=== PATIENT | female | born 1995 | race Caucasian/White ===

== ENCOUNTER → 2017-03-08 | Outpatient (REF) | payer OTHER | LOC: M SFHCWAGY 11:20 | PROVIDERS: ATTEND Nurse Practitioner Family | DX: Z11.3 Encounter for screening for infections with a predominantly sexual mode of transmission (principal) ==

== ENCOUNTER → 2017-05-27 | Outpatient (REF) | payer OTHER | LOC: M LAB REF 09:15 | PROVIDERS: ATTEND Physician Assistant | DX: Z11.3 Encounter for screening for infections with a predominantly sexual mode of transmission (principal) ==

== ENCOUNTER → 2017-11-05 | Outpatient (CLI) | payer OTHER | LOC: M WUC 14:57 | PROVIDERS: ATTEND Physician Assistant | DX: Z11.3 Encounter for screening for infections with a predominantly sexual mode of transmission (principal) ==

== ENCOUNTER → 2018-03-24 | Outpatient (REF) | payer OTHER ==
[2018-03-24 19:29] LABS: CHLAMYDIA DNA AMPLIFICATION NEGATIVE (NEGATIVE); GC DNA AMPLIFICATION NEGATIVE (NEGATIVE)
== END ==
LOC: M SFHCWAGY 15:03
DX: Z01.419 Encounter for gynecological examination (general) (routine) without abnormal findings (principal); Z11.51 Encounter for screening for human papillomavirus (HPV); R87.620 Atypical squamous cells of undetermined significance on cytologic smear of vagina (ASC-US)

== ENCOUNTER → 2018-05-28 | Outpatient (CLI) | payer OTHER ==
[2018-05-28 16:39] LABS: BASO % 0.5 % (0.0-1.0); EOS # 0.3 10^3/uL (0.0-0.50); EOS % 3.2 % (0.0-3.0); HEMATOCRIT 40.5 % (36.0-47.0); HEMOGLOBIN 13.7 g/dl (12.0-15.5); IMMATURE GRANULOCYTE % 0.3 % (0-3.0); LYMPH # 2.9 10^3/uL (1.5-6.5); LYMPH % 36.4 % (24.0-44.0); MEAN CORPUSCULAR HEMOGLOBIN 29.7 pg (27.0-33.0); MEAN CORPUSCULAR HGB CONC 33.8 g/dl (32.0-36.5); MEAN CORPUSCULAR VOLUME 87.9 fl (80.0-96.0); MONO # 0.7 10^3/uL (0.0-0.8); MONO % 9.2 % (0.0-5.0); NEUTROPHILS # 3.9 10^3/uL (1.8-7.7); NEUTROPHILS % 50.4 % (36.0-66.0); PLATELET COUNT, AUTOMATED 318 10^3/uL (150-450); RED BLOOD COUNT 4.61 10^6/uL (4.00-5.40); RED CELL DISTRIBUTION WIDTH 12.4 % (11.5-14.5); WHITE BLOOD COUNT 7.8 10^3/uL (4.0-10.0)
[2018-05-28 17:12] LABS: ALBUMIN 3.7 GM/DL (3.2-5.2); ALBUMIN/GLOBULIN RATIO 0.88 (1.00-1.93); ALKALINE PHOSPHATASE 67 U/L (45-117); ALT/SGPT 20 U/L (12-78); ANION GAP 7 MEQ/L (8-16); AST/SGOT 13 U/L (7-37); BILIRUBIN,TOTAL 0.5 MG/DL (0.2-1.0); BLOOD UREA NITROGEN 12 MG/DL (7-18); CALCIUM LEVEL 8.6 MG/DL (8.5-10.1); CARBON DIOXIDE LEVEL 29 MEQ/L (21-32); CHLORIDE LEVEL 104 MEQ/L (98-107); CREATININE FOR GFR 0.87 MG/DL (0.55-1.30); FREE T4 1.06 NG/DL (0.76-1.46); GLOMERULAR FILTRATION RATE > 60.0 (>60); GLUCOSE, FASTING 83 MG/DL (70-100); POTASSIUM SERUM 4.2 MEQ/L (3.5-5.1); SODIUM LEVEL 140 MEQ/L (136-145); TOTAL PROTEIN 7.9 GM/DL (6.4-8.2)
[2018-05-28 17:19] LABS: ESTIMATED AVERAGE GLUCOSE 97 MG/DL (60-110)
== END ==
LOC: M WUC 13:38
DX: R35.8 Other polyuria (principal)
CPT/HCPCS: 84443

== ENCOUNTER → 2018-09-23 | Outpatient (CLI) | payer OTHER ==
[2018-09-23 16:59] LABS: BASO % 0.2 % (0.0-1.0); EOS # 0.1 10^3/uL (0.0-0.50); EOS % 1.2 % (0.0-3.0); HEMATOCRIT 37.5 % (36.0-47.0); HEMOGLOBIN 12.5 g/dl (12.0-15.5); IMMATURE GRANULOCYTE % 0.3 % (0-3.0); LYMPH # 3.5 10^3/uL (1.5-6.5); LYMPH % 35.1 % (24.0-44.0); MEAN CORPUSCULAR HEMOGLOBIN 29.3 pg (27.0-33.0); MEAN CORPUSCULAR HGB CONC 33.3 g/dl (32.0-36.5); MONO # 0.7 10^3/uL (0.0-0.8); MONO % 7.2 % (0.0-5.0); NEUTROPHILS # 5.6 10^3/uL (1.8-7.7); PLATELET COUNT, AUTOMATED 328 10^3/uL (150-450); RED BLOOD COUNT 4.26 10^6/uL (4.00-5.40); RED CELL DISTRIBUTION WIDTH 12.4 % (11.5-14.5)
[2018-09-23 17:20] LABS: FERRITIN 37 NG/ML (8-252)
[2018-09-23 17:20] LABS: IRON (FE) 97 UG/DL (50-170)
[2018-09-23 17:21] LABS: TOTAL 25(OH) VITAMIN D 17.8 NG/ML (30.0-100.0)
[2018-09-23 17:22] LABS: CONTROL LINE MONO INT CTR LINE PRESENT; FOLATE > 24.0 NG/ML (>5.4); MONO SCRN NEGATIVE (NEGATIVE)
== END ==
LOC: M LAB 15:46
DX: R53.83 Other fatigue (principal)
CPT/HCPCS: 82746

== ENCOUNTER → 2019-03-25 | Outpatient (REF) | payer OTHER ==
[2019-03-25 21:02] LABS: CHLAMYDIA DNA AMPLIFICATION NEGATIVE (NEGATIVE); GC DNA AMPLIFICATION NEGATIVE (NEGATIVE)
[2019-03-28 14:15] LABS: HPV HYBRID CAPTURE II Positive (Negative)
== END ==
LOC: M SFHCWAGY 15:38
PROVIDERS: ATTEND Nurse Practitioner Family
DX: Z12.4 Encounter for screening for malignant neoplasm of cervix (principal)

== ENCOUNTER → 2019-04-23 | Outpatient (REF) | payer OTHER ==
[2019-04-23 15:37] LABS: CHLAMYDIA DNA AMPLIFICATION NEGATIVE (NEGATIVE); GC DNA AMPLIFICATION NEGATIVE (NEGATIVE)
== END ==
LOC: M SFHCWAGY 13:21
PROVIDERS: ATTEND Nurse Practitioner Family
DX: Z11.3 Encounter for screening for infections with a predominantly sexual mode of transmission (principal)

== ENCOUNTER 2019-06-22 15:33 | Emergency (ER) | payer OTHER ==
[~2019-06-22] VITALS: Ht 177.8 cm; Wt 69.5 kg
[2019-06-22] MEDS ORDERED: FLUO20CA19 PO (15:42)
[2019-06-22] MEDS ORDERED: NORT1TAB3 PO (15:42)
[2019-06-22 16:02] LABS: BASO % 0.3 % (0.0-1.0); EOS # 0.1 10^3/uL (0.0-0.50); EOS % 1.5 % (0.0-3.0); HEMATOCRIT 39.6 % (36.0-47.0); HEMOGLOBIN 13.6 g/dl (12.0-15.5); LYMPH # 2.3 10^3/uL (1.5-6.5); LYMPH % 33.9 % (24.0-44.0); MEAN CORPUSCULAR HEMOGLOBIN 30.5 pg (27.0-33.0); MEAN CORPUSCULAR HGB CONC 34.3 g/dl (32.0-36.5); MEAN CORPUSCULAR VOLUME 88.8 fl (80.0-96.0); MONO # 0.7 10^3/uL (0.0-0.8); MONO % 10.9 % (0.0-5.0); NEUTROPHILS # 3.6 10^3/uL (1.8-7.7); NEUTROPHILS % 53.3 % (36.0-66.0); PLATELET COUNT, AUTOMATED 331 10^3/uL (150-450); RED BLOOD COUNT 4.46 10^6/uL (4.00-5.40); WHITE BLOOD COUNT 6.7 10^3/uL (4.0-10.0)
[2019-06-22 16:22] LABS: ALBUMIN 3.8 GM/DL (3.2-5.2); ALT/SGPT 21 U/L (12-78); BILIRUBIN,TOTAL 0.1 MG/DL (0.2-1.0); BLOOD UREA NITROGEN 12 MG/DL (7-18); CALCIUM LEVEL 9.3 MG/DL (8.5-10.1); CARBON DIOXIDE LEVEL 27 MEQ/L (21-32); CHLORIDE LEVEL 107 MEQ/L (98-107); CREATININE FOR GFR 0.97 MG/DL (0.55-1.30); GLOMERULAR FILTRATION RATE > 60.0 (>60); GLUCOSE, FASTING 107 MG/DL (70-100); POTASSIUM SERUM 3.8 MEQ/L (3.5-5.1); SODIUM LEVEL 140 MEQ/L (136-145); TOTAL PROTEIN 7.8 GM/DL (6.4-8.2)
[2019-06-22 16:31] LABS: HEPATITIS B SURFACE ANTIBODY NEGATIVE (POSITIVE)
[2019-06-22 16:42] LABS: HEPATITIS B SURFACE ANTIGEN NEGATIVE (NEGATIVE)
[2019-06-22 17:11] LABS: HEPATITIS C VIRUS ABY INDEX 0.1 INDEX (<0.8)
[2019-06-22 17:44] VITALS: BP 113/73
== END 2019-06-22 17:46 | disposition home or self-care (01) ==
LOC: M ED 15:33
DX: S61.431A Puncture wound without foreign body of right hand, initial encounter (principal); Z77.21 Contact with and (suspected) exposure to potentially hazardous body fluids; W26.8XXA Contact with other sharp object(s), not elsewhere classified, initial encounter; Y92.89 Other specified places as the place of occurrence of the external cause; Y93.9 Activity, unspecified; Y99.0 Civilian activity done for income or pay; F32.9 Major depressive disorder, single episode, unspecified; Z79.899 Other long term (current) drug therapy

== ENCOUNTER 2019-07-17 22:23 | Inpatient (IN) | payer MEDICAID, OTHER ==
[~2019-07-17] VITALS: Ht 177.8 cm; Wt 69.6 kg
[~2019-07-17 22:23] MED LIST: FLUO20CA19 PO; NORT1TAB3 PO
[2019-07-17 22:57] LABS: MEAN CORPUSCULAR HEMOGLOBIN 29.5 pg (27.0-33.0); MEAN CORPUSCULAR HGB CONC 34.2 g/dl (32.0-36.5); MEAN CORPUSCULAR VOLUME 86.4 fl (80.0-96.0); PLATELET COUNT, AUTOMATED 323 10^3/uL (150-450); WHITE BLOOD COUNT 8.5 10^3/uL (4.0-10.0)
[2019-07-17 23:38] LABS: ACETAMINOPHEN LEVEL < 2.0 UG/ML (10.0-30.0); ALBUMIN 3.6 GM/DL (3.2-5.2); ALT/SGPT 18 U/L (12-78); BILIRUBIN,DIRECT 0.1 MG/DL (0.0-0.2); BILIRUBIN,TOTAL 0.3 MG/DL (0.2-1.0); BLOOD UREA NITROGEN 12 MG/DL (7-18); CALCIUM LEVEL 8.5 MG/DL (8.5-10.1); CARBON DIOXIDE LEVEL 24 MEQ/L (21-32); CHLORIDE LEVEL 106 MEQ/L (98-107); CREATININE FOR GFR 0.92 MG/DL (0.55-1.30); ETHYL ALCOHOL (ETHANOL) < 0.003 % (0.000-0.010); GLOMERULAR FILTRATION RATE > 60.0 (>60); GLUCOSE, FASTING 97 MG/DL (70-100); POTASSIUM SERUM 3.8 MEQ/L (3.5-5.1); SALICYLATE LEVEL < 1.7 MG/DL (5.0-30.0); SODIUM LEVEL 138 MEQ/L (136-145); TOTAL PROTEIN 7.5 GM/DL (6.4-8.2)
[2019-07-18 00:20] LABS: AMPHETAMINES LEVEL URINE NEGATIVE (NEGATIVE); BARBITURATES URINE NEGATIVE (NEGATIVE); BENZODIAZEPINES URINE POSITIVE (NEGATIVE); CANNABINOIDS URINE POSITIVE (NEGATIVE); COCAINE METABOLITE URINE NEGATIVE (NEGATIVE); METHADONE URINE NEGATIVE (NEGATIVE); OPIATES URINE NEGATIVE (NEGATIVE); PHENCYCLIDINE URINE NEGATIVE (NEGATIVE)
[2019-07-18] MEDS ORDERED: traZODone 50 MG TAB PO PRN (01:45)
[2019-07-18] MEDS ORDERED: MAALOX 30 ML SUSP *UDC PO PRN (01:45)
[2019-07-18] MEDS ORDERED: MOM 30ML SUSPENSION UDC PO PRN (01:45)
[2019-07-18] MEDS ORDERED: ACETAMINOPHEN TAB 650MG DOSE (2X325MG) PO PRN (01:45)
[2019-07-18 02:33] VITALS: BP 114/71
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
[2019-07-18] MEDS ORDERED: hydrOXYzine 50 MG TAB PO PRN (11:15)
--- NOTE | 2019-07-18 12:55 | CR.PDOC ---
General Date of Consultation: Jul 18, 2019 Attending Physician: AARTI CURIEL DO Consultation REASON FOR CONSULTATION/CHIEF COMPLAINT: Medical clearance HISTORY OF PRESENT ILLNESS: Patient is 23 years old female with past medical history of depression, anxiety, IBS presented hospital with acute episode of depression and suicidal ideation. Psych team asked medical service to evaluate patient. Patient states that she doesn't have any major health problem. She's been diagnosed with IBS, mixed, currently not on any medication. Patient stated that since morning she has been having diplopia specifically when she see distant objects. Patient denied fever, chills, nausea, vomiting, shortness of breath, chest pain, diarrhea or dysuria ALLERGIES: Please see below. HOME MEDICATIONS: Please see below. PAST MEDICAL HISTORY: Major depressive disorder Anxiety IBS PAST SURGICAL HISTORY: None FAMILY HISTORY: Patient was adopted, she doesn't know about the health of her biological parents SOCIAL HISTORY: Patient smokes marijuana twice weekly Alcohol occasionally Never smoked tobacco cigarettes REVIEW OF SYSTEMS: 10 point review of system negative except what is listed in HPI PHYSICAL EXAMINATION: VITAL SIGNS: Please see below. GENERAL APPEARANCE: mild distress HEENT: PERRLA, EOMI, no JVD RESPIRATORY: CTA CARDIOVASCULAR: S1-S2 ABDOMEN: Nontender, nondistended EXTREMITIES: No swelling, no cyanosis NEUROLOGICAL: Nonfocal, cranial nerves from 2-12 intact, muscle strength of 4 limbs 5 out of 5 LABORATORY DATA: Please see below. ASSESSMENT/PLAN: Patient is 23 years old female with past medical history of depression, anxiety, IBS presented hospital with acute episode of depression and suicidal ideation. Psych team asked medical service to evaluate patient. Diplopia On my neurological exam cranial nerves from 2-12 intact, no any focal deficiency, patient alert, oriented, awake. Patient does not have any dizziness, vertigo, lightheadedness, no nausea, no vomiting. The diplopia could be secondary to cannabinoid which was detected in her urine. We'll follow clinically. Please reconsult if patient continues to have diplopia or developed any new neurological symptoms. Vital Signs/I&O Vital Signs Date Time Temp Pulse Resp B/P (MAP) Pulse Ox O2 Delivery O2 Flow Rate FiO2 07/18/19 02:33 98.2 80 16 114/71 (85) 99 07/17/19 22:45 Room Air Laboratory Data Labs 24H Laboratory Tests 2 07/17/19 22:41: Nucleated Red Blood Cells % (auto) 0.0, Anion Gap 8, Glomerular Filtration Rate > 60.0, Calcium Level 8.5, Aspartate Amino Transf (AST/SGOT) 12, Alanine Aminotransferase (ALT/SGPT) 18, Alkaline Phosphatase 57, Total Bilirubin 0.3, Direct Bilirubin 0.1, Total Protein 7.5, Albumin 3.6, Albumin/Globulin Ratio 0.92L, Thyroid Stimulating Hormone (TSH) 1.760, Salicylates Level < 1.7L, Acetaminophen Level < 2.0L, Ethyl Alcohol Level < 0.003 07/17/19 23:49: Urine Amphetamines Screen NEGATIVE, Urine Benzodiazepines Screen POSITIVEH, Urine Opiates Screen NEGATIVE, Urine Methadone Screen NEGATIVE, Urine Barbiturates Screen NEGATIVE, Urine Phencyclidine Screen NEGATIVE, Urine Cocaine Metabolite Screen NEGATIVE, Urine Cannabinoids Screen POSITIVEH CBC/BMP Laboratory Tests 07/17/19 22:41 Red Blood Count 4.40, Mean Corpuscular Volume 86.4, Mean Corpuscular Hemoglobin 29.5, Mean Corpuscular Hemoglobin Concent 34.2, Red Cell Distribution Width 13.0 Allergies Coded Allergies: No Known Allergies (Unverified , 06/22/19) Home Medications Scheduled Fluoxetine Hcl (Fluoxetine HCl) 20 Mg Capsule, 60 MG PO QHS, (Reported) Norethindrone-Ethinyl Estrad (Nortrel 1-35 28 Tablet) 1 Each Tablet, 1 TAB PO QHS, (Reported) AARTI CURIEL DO Jul 18, 2019 12:55
[2019-07-18 17:49] VITALS: BP 109/61
[2019-07-18] MEDS: FLUoxetine 20 MG CAP PO SCH (20:09)
[2019-07-19 06:26] VITALS: BP 108/60
--- NOTE | 2019-07-19 09:16 | MHIPNPDOC ---
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 Pt in ED endorsed fleeting thoughts of jumping off a building that started last week that she stated was triggered by two male friends of hers but would not elaborate further. She endorsed in the ED depression, anxiety, insomnia, hopelessness/helplessness, poor concentration/energy/appetite. She has never been admitted to inpatient psych in the past, has no current outpatient provider, and currently takes prozac 60mg qhs prescribed by her PCP. Her utox in the ED was positive for cannabis and benzodiazepines. Pt seen and states she's had depression for quite a while and "people have been leaving me... 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 Endorses crying during some episodes with anxiety and depression symptoms. States breakdowns are frequently related to "toxic people in my life" and attempts she has a few toxic people in her life now (friend with benefits alex that is cold and distant and "makes me feel like annoying and a burden" who is also moving away soon. Admits she easily gets attached to others. Appears to have some borderline personality characteristics . States her outpatient prescribes her prozac to her which helps a bit but "isn't enough." States her utox is positive for benzo b/c she took a klonopin that she got from a friend. 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 Spoke with pt about starting Abilify to aid mood lability and anxiety and agreeable, risks/benefits discussed. Will also provide vistaril 50mg q6hr prn anxiety. Pt denies current SI/HI, hallucinations, delusions. Feels safe here. VITAL SIGNS: See below. NEW TEST RESULTS: See below. CURRENT MEDICATIONS: See below. MENTAL STATUS EXAMINATION: General Appearance: well groomed, appears stated age, hospital scrubs/clothing Build: average, tall Demeanor: average Eye Contact: average Activity: average, anxious Behavior: cooperative Speech: clear, spontaneous, reg/rate,rhythm,volume Mood: less depressed, still anxious Mood "anxious" Affect: constricted, congruent, anxious Thought Process: logical/linear, less depressed, intact Thought Content (Delusions): none reported, denies SI, HI, AVH Thought Content (Other): none reported, appropriate Thought Content (Aggressive): none reported Perception (Hallucinations): none reported Perception (Other): none reported Cognition (Impairment of): none reported Cognition(Intelligence Est.): average Oriented: Awake, Alert, Oriented times three Insight: fair Judgment: Fair Psychosis: Denies DIAGNOSES: Major depressive d/o recurrent, severe, w/o psychosis cannabis/benzo use d/o Borderline personality traits ASSESSMENT:Pt seen and states she's having some anxiety as her roommate is always talking to her, following her when the milieu which the patient doesn't like b/c she likes her personal space and "I a bit of a loner". Spoke with pt about polite ways to avoid her roommate when in the lounge or milieu and politely saying she doesn't want to talk at times. Pt appeared to become anxious with the thought of being assertive. Encouraged to take vistaril prn anxiety if she feels she needs to. States she started her abilify last night but thus far hasn't noticed much change/benefit. States she is tolerating her m edicines well. States she's being social on the milieu which is beneficial. States she slept well last night. She is attending groups and finding them helpful. She denies SI/HI, hallucinations, delusions. Pt feels safe here. MANAGEMENT PLAN: continue plan Medications: prozac 60mg qhs abilify 5mg qhs for mood vistaril 50mg q6hr prn anxiety TIME SPENT: 30 minutes. Vital Signs Vital Signs Date Time Temp Pulse Resp B/P (MAP) Pulse Ox O2 Delivery O2 Flow Rate FiO2 07/19/19 06:26 97.9 103 16 108/60 (76) 07/18/19 02:33 99 07/17/19 22:45 Room Air Current Medications Current Medications Medications (Trade) Dose Ordered Sig/Tiana Route PRN Reason Start Time Stop Time Status Last Admin Dose Admin Acetaminophen (Tylenol Tab) 650 mg Q6HP PRN PO HEADACHE or DISCOMFORT 07/18/19 01:45 07/19/19 06:50 Al Hydrox/Mg Hydrox/Simethicone (Mylanta) 30 ml Q4HP PRN PO HEARTBURN/INDIGESTION 07/18/19 01:45 Aripiprazole (AbiLIFY) 5 mg QHS PO 07/18/19 21:00 07/18/19 20:09 Fluoxetine HCl (PROzac) 60 mg QHS PO 07/18/19 21:00 07/18/19 20:09 Home Med (Med Rec Complete!) ASDIRECTED XX 07/18/19 00:00 07/18/19 00:04 DC Hydroxyzine HCl (Atarax) 50 mg Q6HP PRN PO ANXIETY/AGITATION 07/18/19 11:15 Magnesium Hydroxide (Milk Of Magnesia) 30 ml DAILYPRN PRN PO CONSTIPATION 07/18/19 01:45 Trazodone HCl (Desyrel) 50 mg QHSP PRN PO INSOMNIA 07/18/19 01:45 Allergies Coded Allergies: No Known Allergies (Unverified , 06/22/19) HAILEY GIVENS DO Jul 19, 2019 9:16 am
[2019-07-19 17:38] VITALS: BP 111/70
[2019-07-19] MEDS: FLUoxetine 20 MG CAP PO SCH (20:16)
[2019-07-20 06:34] VITALS: BP 115/58
--- NOTE | 2019-07-20 15:11 | MHIPNPDOC ---
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 She is admitted and observed. She is currently treated with Prozac and does generally appears to be odd, but not psychotic. Interval History The patient is met with today. She reports she is feeling much improved. She wishes to have her Prozac up to 80 as she feels this will help her mood feel more full and euthymic. She describes she has been doing well in the unit and is interested in being discharged. She has had no major behavioral problems and generally has been attending groups and social in the milieu. Review Of Systems Denies any side effects from Prozac. Psychotherapy None on this visit. Vital Signs Reviewed. Mental Status Examination General: Well dressed with good hygiene Speech: Spontaneous and fluid Thought processes: Linear and logical MSK: Smooth and coordinated gait, no signs of tremors or involuntary orofacial movements Thought content: Future orientated Abstract reasoning, and computation: Intact Description of associations: Intact Description of abnormal or psychotic thoughts: Denies any suicidal or homicidal ideation. Denies any auditory or visual hallucinations. Does not appear to be responding to internal stimuli. Does not appear to be endorsing any bizarre or paranoid ideation. Judgment: fair Insight: fair Orientation: Alert and orientated 3 Cognition: Grossly normal Recent and remote memory: Intact Attention span and concentration: Intact Fund of knowledge: Adequate Mood: "okay" Affect: Euthymic with a full range Diagnoses Unspecified depressive disorder. Cannabis use disorder, unspecified. Assessment and Plan Increase Prozac to 80 mg daily, continue Abilify 5 mg daily. Disposition Discharge tomorrow. Time Spent 10 minutes [id number]. Saturday Vital Signs Vital Signs Date Time Temp Pulse Resp B/P (MAP) Pulse Ox O2 Delivery O2 Flow Rate FiO2 07/20/19 06:34 97.4 78 12 115/58 (77) 07/18/19 02:33 99 07/17/19 22:45 Room Air Current Medications Current Medications Medications (Trade) Dose Ordered Sig/Tiana Route PRN Reason Start Time Stop Time Status Last Admin Dose Admin Acetaminophen (Tylenol Tab) 650 mg Q6HP PRN PO HEADACHE or DISCOMFORT 07/18/19 01:45 07/19/19 06:50 Al Hydrox/Mg Hydrox/Simethicone (Mylanta) 30 ml Q4HP PRN PO HEARTBURN/INDIGESTION 07/18/19 01:45 Aripiprazole (AbiLIFY) 5 mg QHS PO 07/18/19 21:00 07/19/19 20:16 Fluoxetine HCl (PROzac) 60 mg QHS PO 07/18/19 21:00 07/19/19 20:16 Home Med (Med Rec Complete!) ASDIRECTED XX 07/18/19 00:00 07/18/19 00:04 DC Hydroxyzine HCl (Atarax) 50 mg Q6HP PRN PO ANXIETY/AGITATION 07/18/19 11:15 Magnesium Hydroxide (Milk Of Magnesia) 30 ml DAILYPRN PRN PO CONSTIPATION 07/18/19 01:45 07/19/19 15:07 Trazodone HCl (Desyrel) 50 mg QHSP PRN PO INSOMNIA 07/18/19 01:45 Allergies Coded Allergies: No Known Allergies (Unverified , 06/22/19) MARLI MATTHEWS DO Jul 20, 2019 15:11
[2019-07-20 16:40] VITALS: BP 103/65
[2019-07-20] MEDS ORDERED: FLUoxetine 20 MG CAP PO SCH (21:00)
[2019-07-21 06:46] VITALS: BP 90/53
[2019-07-21] MEDS ORDERED: ABIL1TAB11 PO (10:55)
[2019-07-21] MEDS ORDERED: FLUO20CA19 PO (10:55)
--- NOTE | 2019-07-21 10:56 | MHDSPDOC ---
[facility] Discharge Summary Discharge Summary DATE OF ADMISSION: Jul 18, 2019 at 01:39 DATE OF DISCHARGE: 07/21/19 Date of Service: 07/21/2019 Diagnoses Unspecified depressive disorder. Cannabis use disorder, unspecified. 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 She is admitted and observed. She is currently treated with Prozac and does generally appears to be odd, but not psychotic. Consultants Involved Hospitalist/PCP screening Treatment and Progress On The Unit The patient was admitted to the inpatient unit over the weekend. She had reportedly mentioned having suicidal thoughts. However, when she presented to the unit, she clarified that these were more "self-harm thoughts" that are chronic. She had been smoking marijuana in her car on her break as well as using some Klonopin she'd gotten from a friend due to reported anxiety. After observation on the unit, she was able to take care of herself. Flatly denied any overt suicidal thoughts and made no threats towards others. She was able to atte nd to her needs and did not demonstrate signs or symptoms of a severely impairing mental illness. She reported on the first day I had met her that she wished to go. She did not meet involuntary criteria for further continuance of her admission as she was demonstrating no threatening ideation towards herself or others and was not grossly impaired by her condition. She declined to further voluntary admission and was discharged in good rene, increased her Prozac from 60 to 80. She will start on augmentation of Abilify 5 mg daily. Discussed the risks, benefits and potential side effects with the patient related to Abilify to ensure that she would be compliant as an outpatient. The patient's reported depression and anxiety quickly resolved after the cessation of use of cannabis, again this provided to be very suspicious that a substance induced phenomenon was likely. Discharge Assessment A 23-year-old woman with a history of cannabis and benzo use that has significant anxiety and depression. Her past psychiatric history doesn't appear overtly concerning on first glance suggesting a possible substance induced. I counseled the patient significantly on cessation of cannabis as it is well known to increase anxiety and depression as well as to produce panic attacks, the patient was receptive to this. She was discharged in good rene as she did not meet involuntary criteria and declined further voluntary admission. Mental Status Examination General: Well dressed with good hygiene Speech: Spontaneous and fluid Thought processes: Linear and logical MSK: Smooth and coordinated gait, no signs of tremors or involuntary orofacial movements Thought content: Future orientated Abstract reasoning, and computation: Intact Description of associations: Intact Description of abnormal or psychotic thoughts: Denies any suicidal or homicidal ideation. Denies any auditory or visual hallucinations. Does not appear to be responding to internal stimuli. Does not appear to be endorsing any bizarre or paranoid ideation. Judgment: fair Insight: fair Orientation: Alert and orientated 3 Cognition: Grossly normal Recent and remote memory: Intact Attention span and concentration: Intact Fund of knowledge: Adequate Mood: "okay" Affect: Euthymic with a full range Follow Up The social work team worked during the predischarge meeting in order to evaluate for further issues of lethality address them fully before discharge. They worked on safety planning with the patient's family members in order to ensure that the patient will have a safe and effective discharge. Time Spent The amount of time spent in the coordination of care for this patient was approximately 30 minutes. Saturday Vital Signs/I&Os Vital Signs Date Time Temp Pulse Resp B/P (MAP) Pulse Ox O2 Delivery O2 Flow Rate FiO2 07/21/19 06:46 98.0 63 12 90/53 (65) 07/18/19 02:33 99 07/17/19 22:45 Room Air Medications Scheduled Aripiprazole (Abilify) 5 Mg Tablet, 5 MG PO QHS for mood for 7 Days, #7 Fluoxetine Hcl (Fluoxetine HCl) 20 Mg Capsule, 80 MG PO QHS for mood for 7 Days, #28 Norethindrone-Ethinyl Estrad (Nortrel 1-35 28 Tablet) 1 Each Tablet, 1 TAB PO QHS, (Reported) Allergies Coded Allergies: No Known Allergies (Unverified , 06/22/19) MARLI MATTHEWS DO Jul 21, 2019 10:56
== END 2019-07-21 12:15 | disposition home or self-care (01) | DRG 754 ==
LOC: M ED 22:23 → M ED INP 07-18 01:39 → M PSY 07-18 02:40
PROVIDERS: ADMIT Psychiatry & Neurology Psychiatry; ATTEND Psychiatry & Neurology Addiction Medicine
DX: F32.9 Major depressive disorder, single episode, unspecified (principal); R45.851 Suicidal ideations; F12.90 Cannabis use, unspecified, uncomplicated; Z79.899 Other long term (current) drug therapy

== ENCOUNTER 2019-07-31 13:48 | Emergency (ER) | payer MEDICAID, OTHER ==
[~2019-07-31] VITALS: Ht 177.8 cm; Wt 69.6 kg
[~2019-07-31 13:48] MED LIST changes: +ABIL1TAB11 PO
[2019-07-31 15:21] LABS: VENOUS HCO3 23.3 MEQ/L (23.0-27.0); VENOUS O2 SATURATION 62.7 % (60.0-80.0); VENOUS PARTIAL PRESSURE CO2 34.2 mmHg (38.0-50.0); VENOUS PARTIAL PRESSURE O2 30.4 mmHg (30.0-50.0); VENOUS PH 7.452 UNITS (7.330-7.430); VENOUS STANDARD HCO3 23.7 MEQ/L; VENOUS TOTAL CO2 24.4 MEQ/L (24.0-28.0)
[2019-07-31 15:46] LABS: HEMATOCRIT 37.3 % (36.0-47.0); MEAN CORPUSCULAR HEMOGLOBIN 30.3 pg (27.0-33.0); MEAN CORPUSCULAR HGB CONC 34.9 g/dl (32.0-36.5); MEAN CORPUSCULAR VOLUME 86.9 fl (80.0-96.0); PLATELET COUNT, AUTOMATED 356 10^3/uL (150-450); RED BLOOD COUNT 4.29 10^6/uL (4.00-5.40); WHITE BLOOD COUNT 6.5 10^3/uL (4.0-10.0)
[2019-07-31 16:07] VITALS: BP 126/70
--- NOTE | 2019-08-01 05:51 | ECGEPIP ---
[facility] - ED Test Date: 2019-07-31 Pat Name: KAYKAY AYALA Department: Room: - Gender: Female Public [employer] Sanitarian: [place] : 1995 Requested By: XIOMY MORALES Order Number: [id number] Reading MD: Liam Tafoya Measurements Intervals [place] Rate: 73 P: 22 WY: 134 QRS: 42 QRSD: 90 T: 45 QT: 385 QTc: 425 Interpretive Statements SINUS RHYTHM NSTTW ABNORMALITIES NO PRIORS FOR COMPARISON Electronically Signed on 08-01-2019 5:51:19 EDT by Liam Tafoya
== END 2019-07-31 16:09 | disposition home or self-care (01) ==
LOC: M ED 13:48
DX: I49.8 Other specified cardiac arrhythmias (principal); R42 Dizziness and giddiness; F41.9 Anxiety disorder, unspecified; F32.9 Major depressive disorder, single episode, unspecified; Z79.3 Long term (current) use of hormonal contraceptives

== ENCOUNTER 2020-01-08 22:48 | Inpatient (IN) | payer MEDICAID, OTHER ==
[~2020-01-08] VITALS: Ht 177.8 cm; Wt 67.6 kg
[~2020-01-08 22:48] MED LIST changes: -FLUO20CA19 PO; +FLUO20CA22 PO
[2020-01-08 23:24] LABS: HEMATOCRIT 42.5 % (36.0-47.0); HEMOGLOBIN 14.1 g/dl (12.0-15.5); MEAN CORPUSCULAR HEMOGLOBIN 29.4 pg (27.0-33.0); MEAN CORPUSCULAR HGB CONC 33.2 g/dl (32.0-36.5); MEAN CORPUSCULAR VOLUME 88.7 fl (80.0-96.0); PLATELET COUNT, AUTOMATED 326 10^3/uL (150-450); RED BLOOD COUNT 4.79 10^6/uL (4.00-5.40)
[2020-01-08 23:50] LABS: HCG, SERUM QUALITATIVE NEGATIVE (NEGATIVE)
[2020-01-08 23:56] LABS: AMPHETAMINES LEVEL URINE NEGATIVE (NEGATIVE); BARBITURATES URINE NEGATIVE (NEGATIVE); BENZODIAZEPINES URINE NEGATIVE (NEGATIVE); CANNABINOIDS URINE POSITIVE (NEGATIVE); COCAINE METABOLITE URINE NEGATIVE (NEGATIVE); METHADONE URINE NEGATIVE (NEGATIVE); OPIATES URINE NEGATIVE (NEGATIVE); PHENCYCLIDINE URINE NEGATIVE (NEGATIVE)
[2020-01-09 00:05] LABS: ACETAMINOPHEN LEVEL < 2.0 UG/ML (10.0-30.0); ALBUMIN 4.5 GM/DL (3.2-5.2); ALT/SGPT 29 U/L (12-78); BILIRUBIN,DIRECT 0.1 MG/DL (0.0-0.2); BILIRUBIN,TOTAL 0.5 MG/DL (0.2-1.0); BLOOD UREA NITROGEN 12 MG/DL (7-18); CALCIUM LEVEL 9.3 MG/DL (8.5-10.1); CARBON DIOXIDE LEVEL 26 MEQ/L (21-32); CHLORIDE LEVEL 105 MEQ/L (98-107); CREATININE FOR GFR 0.93 MG/DL (0.55-1.30); ETHYL ALCOHOL (ETHANOL) < 0.003 % (0.000-0.010); GLOMERULAR FILTRATION RATE > 60.0 (>60); GLUCOSE, FASTING 90 MG/DL (70-100); POTASSIUM SERUM 3.5 MEQ/L (3.5-5.1); SALICYLATE LEVEL < 1.7 MG/DL (5.0-30.0); SODIUM LEVEL 137 MEQ/L (136-145); TOTAL PROTEIN 8.3 GM/DL (6.4-8.2)
[2020-01-09] MEDS ORDERED: MAALOX 30 ML SUSP *UDC PO PRN (01:00)
[2020-01-09] MEDS ORDERED: ACETAMINOPHEN TAB 650MG DOSE (2X325MG) PO PRN (01:00)
[2020-01-09] MEDS ORDERED: traZODone 50 MG TAB PO PRN (01:00)
[2020-01-09] MEDS ORDERED: MOM 30ML SUSPENSION UDC PO PRN (01:00)
[2020-01-09] MEDS ORDERED: FLUO20CA22 PO (01:31)
[2020-01-09 01:39] VITALS: BP 98/56
[2020-01-09 06:19] VITALS: BP 100/53
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
[2020-01-09] MEDS: SERTRALINE HCL 50 MG TAB PO SCH (12:34)
--- NOTE | 2020-01-09 14:18 | CR.PDOC ---
General Date of Consultation: Jan 09, 2020 Referring Provider: A Consultation Visit LIVIA FOR CONSULTATION/CHIEF COMPLAINT: Physical examination HISTORY OF PRESENT ILLNESS: Patient is 24 years old female w/o significant past medical history, who was admitted in the hospital with depression. She denied any cardiovascular problem, breathing problem, GI problem or dysuria. He denies fever, chills, nausea, vomiting, shortness of breath, palpitations, diarrhea or dysuria ALLERGIES: Please see below. HOME MEDICATIONS: Please see below. PAST MEDICAL HISTORY: None PAST SURGICAL HISTORY: None FAMILY HISTORY: Patient was adopted SOCIAL HISTORY: Marital status and/or living arrangements: Single Tobacco use: 2- 3 cigarettes in a week ETOH: Socially Illicit drug use: Marijuana IV drug use: Denied PHYSICAL EXAMINATION: VITAL SIGNS: Please see below. GENERAL APPEARANCE: NAD HEENT: PERRLA, EOMI RESPIRATORY: CTA CARDIOVASCULAR: S1-S2 ABDOMEN: Nontender nondistended EXTREMITIES: No swelling NEUROLOGICAL: Cranial nerves from 2-12 intact LABORATORY DATA: Please see below. ASSESSMENT/PLAN: Patient does not have any acute diseases besides of his psychiatric diseases. Vital Signs/I&O Vital Signs Date Time Temp Pulse Resp B/P (MAP) Pulse Ox O2 Delivery O2 Flow Rate FiO2 01/09/20 06:19 98.6 76 16 100/53 (69) 01/09/20 01:39 100 Room Air Laboratory Data Labs 24H Laboratory Tests 2 01/08/20 23:16: Nucleated Red Blood Cells % (auto) 0.0, Anion Gap 6L, Glomerular Filtration Rate > 60.0, Calcium Level 9.3, Total Bilirubin 0.5, Direct Bilirubin 0.1, Aspartate Amino Transf (AST/SGOT) 21, Alanine Aminotransferase (ALT/SGPT) 29, Alkaline Phosphatase 88, Total Protein 8.3H, Albumin 4.5, Albumin/Globulin Ratio 1.18, Thyroid Stimulating Hormone (TSH) 4.140H, Human Chorionic Gonadotropin, Qual NEGATIVE, Salicylates Level < 1.7L, Urine Opiates Screen NEGATIVE, Urine Methadone Screen NEGATIVE, Acetaminophen Level < 2.0L, Urine Barbiturates Screen NEGATIVE, Urine Phencyclidine Screen NEGATIVE, Urine Amphetamines Screen NEGATIVE, Urine Benzodiazepines Screen NEGATIVE, Urine Cocaine Metabolite Screen NEGATIVE, Urine Cannabinoids Screen POSITIVEH, Ethyl Alcohol Level < 0.003 CBC/BMP Laboratory Tests 01/08/20 23:16 Allergies Coded Allergies: No Known Allergies (Unverified , 06/22/19) Home Medications Scheduled Fluoxetine Hcl (Fluoxetine HCl) 20 Mg Capsule, 80 MG PO QHS, (Reported) AARTI CURIEL DO Jan 09, 2020 14:18
[2020-01-09 16:14] VITALS: BP 114/69
[2020-01-10 06:39] VITALS: BP 92/50
[2020-01-10] MEDS: SERTRALINE HCL 50 MG TAB PO SCH (10:12)
[2020-01-10 16:00] VITALS: BP 111/57
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
[2020-01-10] MEDS: hydrOXYzine 25 MG TAB PO PRN (17:00)
[2020-01-10] MEDS ORDERED: PILL CUTTER 1 EACH XX PRN (17:00)
[2020-01-10] MEDS: traZODone 50 MG TAB PO PRN (21:51)
[2020-01-11 07:03] VITALS: BP 101/49
--- NOTE | 2020-01-11 08:44 | MHIPNPDOC ---
[facility] Progress Note Progress Note Karina Perry Inpatient Progress Note Karina Perry Select Gender MRN: N/A Date of : MM/DD/YYYY Date of Service: 01/11/2020 History of Present Illness Patient is a 24 -year-old , female, who, "as per ED notes: "Pt presented to ED following a police encounter with Kim OCHOA. Pt reported that she went to her boyfriend's house whom she has a restraining order against and her parents called the police. While police were on scene pt reportedly made SI statements. Pt reported she has been feeling suicidal for the past 3 months. Pt stated "My family is falling apart, my friends don't seem interested in me, and my boyfriend only cares about himself." Pt also stated "everything is falling apart, my family is sick of me." Pt stated that she would OD, and the only thing stopping her currently is fear and how she knows it would hurt her parents. Pt reports difficulty falling and staying asleep at night. Pt denies HI and AH/VH. Pt lives at home with her parents. Pt had recent [facility] stay at [facility] in 07/2019. Pt reports Hx of self harm but hasn't cut in a few months, pt reported having the urge to cut but has not recently. Pt reports being Dx with Border Line Personality Disorder and Depression. Pt reported that she is in O/P services at [facility] and sees her therapist 1x weekly, but is awaiting an appointment with a p sychiatrist scheduled at the end of January 2020. Pt reported vaping nicotine regularly and utilizing marijuana 2-3 times weekly. Pt is unable to CFS at this time and states she is unsafe to return home at this time". Interval History Narrative: The patient is met within the group setting. The patient reports that she is feeling "better." Affective: The patient reports improving low mood and better concentration. Psychotic: The patient endorses none. Anxiety: Improving situational anxiety. Eating and sleeping behaviors: Improving. Group Attendance: Frequent. Medication Side effects: See ROS below Behavioral problems/significant events overnight: None. Staff Report: Friendly and amenable to interactions. Review Of Systems General: Denies fever or appetite changes Cardiovascular: Denies Chest pain or palpitations GI: Some upset stomach with some diarrhea. Respiratory: Denies shortness of breath or cough Neuro: Denies dizziness, tremors Derm: Denies any rashes or pruritus : Denies any dysuria or urinary problems HEENT: Some mild headaches after starting the new med. Denies vision changes. Psychotherapy None on this visit. Vital Signs Reviewed. Mental Status Examination General: Well dressed with good hygiene Speech: Spontaneous and fluid Thought processes: Linear and logical MSK: Smooth and coordinated gait, no signs of tremors or involuntary orofacial movements Thought content: Appears to be more future orientated Abstract reasoning, and computation: Intact Description of associations: Intact Description of abnormal or psychotic thoughts: Denies any suicidal or homicidal ideation. Denies any auditory or visual hallucinations. Does not appear to be responding to internal stimuli. Does not appear to be endorsing any bizarre or paranoid ideation. Judgment: Appears to be improving Insight: Appears to be improving Orientation: Alert and orientated 3 Cognition: Grossly normal Recent and remote memory: Intact Attention span and concentration: Intact Fund of knowledge: Adequate Mood: "fine" Affect: Dysthymic with a constricted range. Diagnoses Unspecified depressive disorder. Adjustment versus MDD. Cannabis use disorder, moderate. Borderline personality disorder. Assessment and Plan Unspecified depression: Increase sertraline to 100 mg daily. Loperamide for diarrhea. No signs of infection. We will monitor closely. Cannabis use disorder: Recommend addiction treatment. Borderline personality disorder: Monitor behavioral problems. Disposition Patient will be retained for another day or 2 for observation and titration of her medication in order to assure a safe and effective discharge. Time Spent 15 minutes. Vital Signs Vital Signs Date Time Temp Pulse Resp B/P (MAP) Pulse Ox O2 Delivery O2 Flow Rate FiO2 01/11/20 07:03 98.2 55 16 101/49 (66) Room Air 01/09/20 01:39 100 Current Medications Current Medications Medications (Trade) Dose Ordered Sig/Tiana Route PRN Reason Start Time Stop Time Status Last Admin Dose Admin Acetaminophen (Tylenol Tab) 650 mg Q6HP PRN PO HEADACHE or DISCOMFORT 01/09/20 01:00 Al Hydrox/Mg Hydrox/Simethicone (Mylanta) 30 ml Q4HP PRN PO HEARTBURN/INDIGESTION 01/09/20 01:00 Home Med (Med Rec Complete!) ASDIRECTED XX 01/09/20 01:45 01/09/20 01:33 DC Hydroxyzine HCl (Atarax) 25 mg Q6HP PRN PO ANXIETY 01/09/20 12:30 01/10/20 17:00 Magnesium Hydroxide (Milk Of Magnesia) 30 ml DAILYPRN PRN PO CONSTIPATION 01/09/20 01:00 Sertraline HCl (Zoloft) 50 mg DAILY PO 01/09/20 09:00 01/10/20 16:39 DC 01/10/20 10:12 Sertraline HCl (Zoloft) 75 mg DAILY PO 01/11/20 09:00 Trazodone HCl (Desyrel) 50 mg QHSP PRN PO INSOMNIA 01/09/20 01:00 01/10/20 16:39 DC 01/09/20 21:22 Trazodone HCl (Desyrel) 75 mg QHSP PRN PO INSOMNIA 01/10/20 16:45 01/10/20 21:51 Allergies Coded Allergies: No Known Allergies (Unverified , 06/22/19) MARLI MATTHEWS DO Jan 11, 2020 08:44
[2020-01-11] MEDS ORDERED: SERTRALINE HCL 50 MG TAB PO SCH (09:00)
[2020-01-11] MEDS: hydrOXYzine 25 MG TAB PO PRN ×3 (09:01→20:09)
[2020-01-11] MEDS ORDERED: LOPERAMIDE 2 MG CAPLET PO PRN (09:15)
[2020-01-11 15:51] VITALS: BP 99/54
[2020-01-11] MEDS: traZODone 50 MG TAB PO PRN (21:13)
[2020-01-12 07:08] VITALS: BP 92/60
[2020-01-12] MEDS: hydrOXYzine 25 MG TAB PO PRN ×3 (09:03→21:31)
[2020-01-12] MEDS: SERTRALINE 100 MG TAB PO SCH (09:03)
[2020-01-12 16:00] VITALS: BP 106/57
[2020-01-12] MEDS: traZODone 50 MG TAB PO PRN (21:31)
--- NOTE | 2020-01-12 23:19 | MHIPN ---
DATE: 01/12/2020 The patient today states, "I'm feeling fine, I'm just tired." She says she is not feeling suicidal. She really feels her medications are helping her, especially her anxiety is better with the hydroxyzine. MENTAL STATUS EXAM: She is alert and oriented times three. She is pleasant and cooperative, verbally spontaneous. There is no formal thought disorder noted. She says her mood is "fine." Affect is restricted but appropriate to mood. She is not psychotic. She is not suicidal. Concentration is fair. Insight and judgment is fair. DIAGNOSIS: Unspecified depressive disorder. Cannabis use disorder, moderate. Borderline personality disorder. TREATMENT PLAN: At this point, will continue to monitor the patient for continued elevation and stabilization of mood and continued resolution of suicidal ideation.
[2020-01-13 06:44] VITALS: BP 90/55
[2020-01-13] MEDS ORDERED: HYDR-3363 PO (08:48)
[2020-01-13] MEDS ORDERED: SERT-138 PO (08:48)
[2020-01-13] MEDS ORDERED: TRAZ-252 PO (08:49)
--- NOTE | 2020-01-13 08:49 | MHDSPDOC ---
[facility] Discharge Summary Discharge Summary DATE OF ADMISSION: Jan 09, 2020 at 00:51 DATE OF DISCHARGE: 01/13/20 Karina Perry Discharge Karina Perry Select Gender MRN: N/A Date of : MM/DD/YYYY Date of Service: 01/13/2020 Diagnoses Unspecified depressive disorder. Adjustment versus MDD. Cannabis use disorder, moderate. Borderline personality disorder. History of Present Illness Patient is a 24 -year-old , female, who, "as per ED notes: "Pt presented to ED following a police encounter with Kim OCHOA. Pt reported that she went to her boyfriend's house whom she has a restraining order against and her parents called the police. While police were on scene pt reportedly made SI statements. Pt reported she has been feeling suicidal for the past 3 months. Pt stated "My family is falling apart, my friends don't seem interested in me, and my boyfriend only cares about himself." Pt also stated "everything is falling apart, my family is sick of me." Pt stated that she would OD, and the only thing stopping her currently is fear and how she knows it would hurt her parents. Pt reports difficulty falling and staying asleep at night. Pt denies HI and AH/VH. Pt lives at home with her parents. Pt had recent [facility] stay at [facility] in 07/2019. Pt reports Hx of self harm but hasn't cut in a few months, pt reported having the urge to cut but has not recently. Pt reports being Dx with Border Line Personality Disorder and Depression. Pt reported that she is in O/P services at [facility] and sees her therapist 1x weekly, but is awaiting an appointment with a psychiatrist scheduled at the end of January 2020. Pt reported vaping nicotine regularly and utilizing marijuana 2-3 times weekly. Pt is unable to CFS at this time and states she is unsafe to return home at this time". Consultants Involved Hospitalist/PCP screening Treatment and Progress On The Unit The patient was admitted to the inpatient mental health unit where she was subsequently started on sertraline titrated up to 50 mg at first, then increasing to 100 mg by discharge. The patient did well on the increased dose of antidepressant reporting that her depression had improved well. She cooperated well with treatment. Denying suicidal and homicidal ideation through the majority of her admission. She improved well and subsequently requested discharge. Discharge Assessment 24-year-old woman with a history of likely adjustment in the context of cannabis use in borderline personality disorder, who presents depressed initially with fleeting SI where she was admitted and treated with a low dose of an antidepressant. The patient at the time of discharge did not meet criteria for involuntary admission/extension due to having a normal mental status exam, fair insight into the situation, They are engaged in the discharge process, as well as being friendly and amenable in behavioral control and havent been engaging in any observed concerning behavior or ideation recently. They decline voluntary extension/admission at this time and must be discharged in good rene, as Im unable to make a case for holding the patient against their will. They may have historical risk factors of admissions and other interactions with psychiatry however, those are not modifiable from a clinical perspective. The patient will need to be discharged in good rene. Mental Status Examination General: Well dressed with good hygiene Speech: Spontaneous and fluid Thought processes: Linear and logical MSK: Smooth and coordinated gait, no signs of tremors or involuntary orofacial movements Thought content: Future orientated Abstract reasoning, and computation: Intact Description of associations: Intact Description of abnormal or psychotic thoughts: Denies any suicidal or homicidal ideation. Denies any auditory or visual hallucinations. Does not appear to be responding to internal stimuli. Does not appear to be endorsing any bizarre or paranoid ideation. Judgment: fair Insight: fair Orientation: Alert and orientated 3 Cognition: Grossly normal Recent and remote memory: Intact Attention span and concentration: Intact Fund of knowledge: Adequate Mood: "okay" Affect: Euthymic with a full range Follow Up The social work team worked during the predischarge meeting in order to evaluate for further issues of lethality address them fully before discharge. They worked on safety planning with the patient's family members in order to ensure that the patient will have a safe and effective discharge. Time Spent The amount of time spent in the coordination of care for this patient was approximately 50 minutes. Vital Signs/I&Os Vital Signs Date Time Temp Pulse Resp B/P (MAP) Pulse Ox O2 Delivery O2 Flow Rate FiO2 01/13/20 06:44 96.8 53 16 90/55 (67) 01/11/20 07:03 Room Air 01/09/20 01:39 100 Medications Scheduled Sertraline HCl (Sertraline HCl) 100 Mg Tablet, 100 MG PO DAILY for mood for 7 Days, #7 Scheduled PRN Hydroxyzine HCl (Hydroxyzine HCl) 25 Mg Tablet, 50 MG PO Q6HP PRN for ANXIETY for 7 Days, #20 Trazodone HCl (Trazodone HCl) 50 Mg Tablet, 75 MG PO QHSP PRN for INSOMNIA for 7 Days, #20 Allergies Coded Allergies: No Known Allergies (Unverified , 06/22/19) MARLI MATTHEWS DO Jan 13, 2020 08:49
[2020-01-13] MEDS: SERTRALINE 100 MG TAB PO SCH (09:25)
[2020-01-13] MEDS: hydrOXYzine 25 MG TAB PO PRN (09:26)
== END 2020-01-13 13:05 | disposition home or self-care (01) | DRG 751 ==
LOC: M ED 22:48 → M ED INP 01-09 00:51 → M PSY 01-09 01:20
PROVIDERS: ADMIT Psychiatry & Neurology Psychiatry; ATTEND Psychiatry & Neurology Addiction Medicine
DX: F33.9 Major depressive disorder, recurrent, unspecified (principal); F43.20 Adjustment disorder, unspecified; F12.20 Cannabis dependence, uncomplicated; F60.3 Borderline personality disorder; Z91.5 Personal history of self-harm; G47.00 Insomnia, unspecified; Z60.8 Other problems related to social environment; Z79.899 Other long term (current) drug therapy; F17.210 Nicotine dependence, cigarettes, uncomplicated; F17.290 Nicotine dependence, other tobacco product, uncomplicated; Z56.0 Unemployment, unspecified

== ENCOUNTER → 2021-11-29 | Outpatient (REF) | payer MEDICAID, OTHER ==
[~2021-11-29] MED LIST changes: +HYDR-3363 PO; +SERT-138 PO; +TRAZ-252 PO
[2021-11-29 15:11] LABS: GC DNA AMPLIFICATION NEGATIVE (NEGATIVE)
== END ==
LOC: M SFHCWAGY 12:46
PROVIDERS: ATTEND Nurse Practitioner Women's Health
DX: Z12.4 Encounter for screening for malignant neoplasm of cervix (principal); Z77.9 Other contact with and (suspected) exposures hazardous to health

== ENCOUNTER → 2023-04-09 | Outpatient (REF) | payer MEDICAID, OTHER | LOC: M SFHCWAGY 17:10 | PROVIDERS: ATTEND Nurse Practitioner Family | DX: R10.2 Pelvic and perineal pain (principal); N73.9 Female pelvic inflammatory disease, unspecified; Z12.4 Encounter for screening for malignant neoplasm of cervix ==

== ENCOUNTER → 2023-04-29 | Outpatient (REF) | payer OTHER | LOC: M SFHCWAGY 17:41 | PROVIDERS: ATTEND Specialist | DX: R87.613 High grade squamous intraepithelial lesion on cytologic smear of cervix (HGSIL) (principal) ==

== ENCOUNTER → 2023-05-01 | Outpatient (CLI) | payer OTHER | LOC: M WHC 12:24 | PROVIDERS: ATTEND Nurse Practitioner Family | DX: R10.2 Pelvic and perineal pain (principal) ==

== ENCOUNTER → 2023-09-10 | Outpatient (CLI) | payer OTHER ==
[2023-09-10 19:12] LABS: BASO % 0.5 % (0.0-1.0); EOS # 0.1 10^3/uL (0.0-0.5); EOS % 1.6 % (0.0-3.0); HEMATOCRIT 38.6 % (36.0-47.0); LYMPH # 2.5 10^3/uL (1.5-5.0); LYMPH % 38.9 % (24.0-44.0); MEAN CORPUSCULAR HEMOGLOBIN 29.8 pg (27.0-33.0); MEAN CORPUSCULAR HGB CONC 33.7 g/dl (32.0-36.5); MEAN CORPUSCULAR VOLUME 88.5 fl (80.0-96.0); MONO # 0.6 10^3/uL (0.0-0.8); MONO % 9.4 % (2.0-8.0); NEUTROPHILS # 3.2 10^3/uL (1.5-8.5); NEUTROPHILS % 49.6 % (36.0-66.0); PLATELET COUNT, AUTOMATED 322 10^3/uL (150-450); RED BLOOD COUNT 4.36 10^6/uL (4.00-5.40); WHITE BLOOD COUNT 6.4 10^3/uL (4.0-10.0)
[2023-09-10 19:29] LABS: HEMOGLOBIN A1c 4.6 % (4.0-6.0)
[2023-09-10 19:42] LABS: C REACTIVE PROTEIN QUANTITATIV < 0.40 MG/DL (<1.0)
[2023-09-10 19:43] LABS: ALBUMIN 3.9 G/DL (3.2-5.2); ALKALINE PHOSPHATASE 53 U/L (46-116); ALT/SGPT 10 U/L (7.0-40); AST/SGOT 11 U/L (<34); BILIRUBIN,TOTAL 0.5 MG/DL (0.3-1.2); BLOOD UREA NITROGEN 11 MG/DL (9-23); CALCIUM LEVEL 8.9 MG/DL (8.5-10.1); CARBON DIOXIDE LEVEL 26 MMOL/L (20-31); CHLORIDE LEVEL 105 MMOL/L (98-107); CREATININE FOR GFR 0.96 MG/DL (0.55-1.30); GLOMERULAR FILTRATION RATE > 60.0 (>60); GLUCOSE, FASTING 87 MG/DL (60-100); POTASSIUM SERUM 3.8 MMOL/L (3.5-5.1); SODIUM LEVEL 140 MMOL/L (136-145); TOTAL PROTEIN 7.4 G/DL (5.7-8.2)
[2023-09-10 19:45] LABS: FREE T4 1.04 NG/DL (0.89-1.76); THYROID STIMULATING HORMONE 1.386 uIU/ML (0.55-4.78)
== END ==
LOC: M WUC 15:18
PROVIDERS: ATTEND Physician Assistant
DX: R53.83 Other fatigue (principal)

== ENCOUNTER → 2024-05-06 | Outpatient (REF) | payer OTHER, MEDICAID ==
[~2024-05-06] MED LIST changes: +FLUO-365 PO; -FLUO20CA22 PO
[2024-05-08 12:50] LABS: HPV APTIMA Not Detected (Not Detected)
== END ==
LOC: M SFHCWAGY 17:24
PROVIDERS: ATTEND Nurse Practitioner Family
DX: Z12.4 Encounter for screening for malignant neoplasm of cervix (principal); R87.615 Unsatisfactory cytologic smear of cervix; B97.7 Papillomavirus as the cause of diseases classified elsewhere

== ENCOUNTER → 2025-05-24 | Outpatient (REF) | payer OTHER, MEDICAID ==
[2025-05-26 15:15] LABS: HPV APTIMA Not Detected (Not Detected)
== END ==
LOC: M SFHCWAGY 13:03
PROVIDERS: ATTEND Nurse Practitioner Family
DX: R87.613 High grade squamous intraepithelial lesion on cytologic smear of cervix (HGSIL) (principal); B97.7 Papillomavirus as the cause of diseases classified elsewhere; Z12.4 Encounter for screening for malignant neoplasm of cervix; R87.615 Unsatisfactory cytologic smear of cervix